=== PATIENT | male | born 1980 | race Hispanic/Latino ===

== ENCOUNTER 2020-08-14 22:38 | Observation (INO) | payer OTHER ==
[~2020-08-14] VITALS: Ht 165.1 cm; Wt 139.9 kg
[2020-08-14] MEDS ORDERED: NITROGLYCERIN 2% OINT 1 GM PKT TOP ONE (23:15)
[2020-08-14] MEDS ORDERED: ACETAMINOPHEN 325 MG TAB PO ONE (23:15)
[2020-08-14] MEDS ORDERED: ONDANSETRON HCL INJ 2MG/ML 2ML 2 MG/ML VIAL IV PRN ×2 (23:15→23:45)
[2020-08-14] MEDS ORDERED: FAMOTIDINE 20 MG/2 ML VIAL IV ONE (23:15)
[2020-08-14] MEDS ORDERED: NITROGLYCERIN 2% OINT 1 GM PKT ONE (23:43)
[2020-08-14] MEDS ORDERED: SODIUM CHLORIDE FLUSH 10 ML SYR INJ PRN (23:45)
[2020-08-14] MEDS: METOPROLOL TARTRATE 50 MG TAB PO SCH (23:45)
[2020-08-15 01:48] VITALS: BP 137/82
[2020-08-15 01:50] VITALS: BP 137/82
[2020-08-15] MEDS ORDERED: LOSARTAN POTASS25 MG PO ×2 (02:12→15:25)
[2020-08-15 04:00] VITALS: BP 137/83
[2020-08-15] MEDS: NITROGLYCERIN 2% OINT 1 GM PKT TOP SCH ×3 (05:55→12:55)
[2020-08-15 08:07] LABS: BASOPHILS # (AUTO) 0.1 (0.0-0.1); BASOPHILS % 0.6 % (0.0-1.0); EOSINOPHILS # (AUTO) 0.1 (0.0-0.4); EOSINOPHILS % 1.3 % (0.0-6.0); HEMATOCRIT 44.9 % (38.2-49.6); HEMOGLOBIN 14.6 g/dL (14.0-18.0); LYMPHOCYTES # (AUTO) 2.2 (1.0-3.2); LYMPHOCYTES % 25.6 % (18.0-39.1); MEAN CORPUSCULAR HEMOGLOBIN 28.6 pg (28-32); MEAN CORPUSCULAR HGB CONC 32.5 g/dL (31-35); MEAN CORPUSCULAR VOLUME 87.9 fL (81-99); MONOCYTES # (AUTO) 0.7 (0.2-0.8); MONOCYTES % 7.7 % (4.4-11.3); NEUTROPHILS # (AUTO) 5.5 (2.1-6.9); NEUTROPHILS % 64.5 % (38.7-80.0); PLATELET COUNT 210 x10e3/uL (140-360); RED BLOOD COUNT 5.11 x10e6/uL (4.3-5.7); RED CELL DISTRIBUTION WIDTH 12.2 % (11.7-14.4)
[2020-08-15 08:24] VITALS: BP 109/63
[2020-08-15 08:34] LABS: ANION GAP 13.3 mmol/L (8-16); BLOOD UREA NITROGEN 16 mg/dL (7-26); BUN/CREATININE RATIO 17 (6-25); CALCIUM 8.7 mg/dL (8.4-10.2); CARBON DIOXIDE 27 mmol/L (22-29); CHLORIDE 101 mmol/L (98-107); CHOL/HDL RATIO 3.7 (3.9-4.7); CHOLESTEROL 186 MD/DL (0-199); CREATININE, SERUM 0.93 mg/dL (0.72-1.25); EST GLOMERULAR FILTRATION RATE > 60 ML/MIN (60-); GLUCOSE 117 mg/dL (74-118); HDL CHOLESTEROL 50 MG/DL (40-60); LDL CHOLESTEROL 119 MG/DL (60-130); POTASSIUM 4.3 mmol/L (3.5-5.1); SODIUM 137 mmol/L (136-145); TRIGLYCERIDES 83 MG/DL (0-149)
[2020-08-15 08:35] LABS: CREATINE KINASE MB 1.2 ng/mL (0-5.0)
[2020-08-15] MEDS ORDERED: ASPIRIN 81 MG CHEW TAB PO SCH (09:00)
[2020-08-15] MEDS ORDERED: LISINOPRIL 10 MG TAB PO SCH (09:00)
[2020-08-15] MEDS ORDERED: FAMOTIDINE 20 MG TAB PO SCH (09:00)
[2020-08-15] MEDS: METOPROLOL TARTRATE 50 MG TAB PO SCH (09:30)
[2020-08-15 10:44] VITALS: BP 109/63
[2020-08-15 12:51] VITALS: BP 118/75
[2020-08-15 15:59] LABS: CREATINE KINASE 226 IU/L (30-200)
[2020-08-15] MEDS ORDERED: SIMVASTATIN 40 MG TAB PO SCH (21:00)
== END 2020-08-15 16:21 | disposition home or self-care (01) ==
LOC: FSED 23:12 → ERHOLD 23:37 → MED/SURG2 08-15 01:48
PROVIDERS: ADMIT Internal Medicine; ATTEND Internal Medicine
DX: I16.0 Hypertensive urgency (principal); R07.89 Other chest pain; E11.9 Type 2 diabetes mellitus without complications; E66.01 Morbid (severe) obesity due to excess calories; K21.9 Gastro-esophageal reflux disease without esophagitis; Z91.14 Patient's other noncompliance with medication regimen; Z88.1 Allergy status to other antibiotic agents; Z88.0 Allergy status to penicillin; Z88.8 Allergy status to other drugs, medicaments and biological substances; Z68.43 Body mass index [BMI] 50.0-59.9, adult; Z20.822 Contact with and (suspected) exposure to COVID-19
CPT/HCPCS: 36415; 71046; 80048; 80053; 80061; 82550; 82553 ×2; 83036; 84484 ×2; 85025 ×2; 93005; 93306; 96374; 96376; 99284; G0378 ×2; J2405; U0002